=== PATIENT | female | born 1975 | race Caucasian/White ===

== ENCOUNTER → 2021-05-16 12:46 | Outpatient (CLI) | payer OTHER, SELFPAY ==
--- NOTE | ~2021-05-16 | MM_ITS ---
EXAMINATION: MM screening [facility] w [facility]aylor HISTORY: Screening TECHNIQUE: Craniocaudal and mediolateral oblique 3-D tomosynthesis images were obtained and synthetic 2-D images were generated. CAD analysis was submitted and interpreted. COMPARISON: No prior mammogram is available for comparison at this institution. BREAST PARENCHYMAL COMPOSITION: The breasts are almost entirely fatty. FINDINGS: There is no evidence of suspicious mass, calcification, or architectural distortion to sugg est malignancy in either breast. There has been no suspicious interval change. IMPRESSION: 1. No mammographic evidence of malignancy. 2. Recommend routine screening mammography in one year. BI-RADS Category 1: Negative Reviewed, dictated and finalized at location A.
== END ==
PROVIDERS: Visit Provider Obstetrics & Gynecology
DX: Z12.31 Encounter for screening mammogram for malignant neoplasm of breast (principal)
CPT/HCPCS: 77063; 77067

== ENCOUNTER 2022-02-02 07:12 | Outpatient (CLI) | payer OTHER, SELFPAY ==
--- NOTE | ~2022-02-02 | XR_ITS ---
EXAMINATION: XR abdomen/kub 1V INDICATION: Calcium kidney stone TECHNIQUE: Supine views of the abdomen were obtained on 2 radiographs. COMPARISON: 11/21/2008 FINDINGS: There is a 2 mm calcification in the left mid kidney which could reflect nephrolithiasis. B owel contents project over the right kidney limiting sensitivity for renal stones. There are multiple pelvic phleboliths. One right pelvic calcification projects near the expected location of the right ureterovesicular junction. IMPRESSION: 1. Right pelvic calcification which could reflect phleboliths or right ureterovesicular junction ston e. Correlate for right flank pain. Reviewed, dictated and finalized at location F. IMPRESSION: 1. Right pelvic calcification which could reflect phleboliths or right ureterov esicular junction stone. Correlate for right flank pain.
== END 2022-02-02 07:13 | disposition home or self-care (01) ==
LOC: ANHIMG 07:15
PROVIDERS: Visit Provider Urology
DX: N20.0 Calculus of kidney (principal)
CPT/HCPCS: 74018